=== PATIENT | female | born 1950 | race Caucasian/White ===

== ENCOUNTER 2017-12-01 21:26 | Emergency (ER) | payer MEDICARE | END 2017-12-01 22:59 | disposition left against medical advice (07) | LOC: ERS 21:26 | DX: Z53.21 Procedure and treatment not carried out due to patient leaving prior to being seen by health care provider (principal) ==

== ENCOUNTER 2019-03-08 15:22 | Outpatient (CLI) | payer MEDICARE | END 2019-03-08 15:23 | disposition home or self-care (01) | LOC: CTENTCT 15:22 | PROVIDERS: ATTEND Student in an Organized Health Care Education/Training Program | DX: S02.30XA Fracture of orbital floor, unspecified side, initial encounter for closed fracture (principal) | CPT/HCPCS: 70486 ==

== ENCOUNTER 2020-11-19 14:38 | Outpatient (CLI) | payer MEDICARE | END 2020-11-19 14:39 | disposition home or self-care (01) | LOC: BICRAD 14:38 | PROVIDERS: ATTEND Family Medicine | DX: S99.912A Unspecified injury of left ankle, initial encounter (principal); W19.XXXA Unspecified fall, initial encounter ==

== ENCOUNTER 2020-12-02 13:38 | Outpatient (CLI) | payer MEDICARE ==
[2020-12-02] MEDS ORDERED: Iopamidol 370 76% 100 ML VIAL ONE (16:24)
== END 2020-12-02 13:39 | disposition home or self-care (01) ==
LOC: BICCT 13:38
PROVIDERS: ATTEND Family Medicine
DX: N28.89 Other specified disorders of kidney and ureter (principal); R31.29 Other microscopic hematuria; N28.1 Cyst of kidney, acquired; K44.9 Diaphragmatic hernia without obstruction or gangrene; E27.8 Other specified disorders of adrenal gland
CPT/HCPCS: 74170; Q9967

== ENCOUNTER 2021-03-11 11:34 | Emergency (ER) | payer MEDICARE ==
[2021-03-11] MEDS ORDERED: Diazepam 10 MG/2 ML SYRINGE ONE (12:56)
[2021-03-11] MEDS ORDERED: Morphine 4 MG/ML VIAL ONE (14:46)
[2021-03-11] MEDS ORDERED: Ondansetron ODT 4 MG TAB ONE ×2 (14:46→14:48)
== END 2021-03-11 16:35 | disposition home or self-care (01) ==
LOC: ERS 11:34
DX: S32.011A Stable burst fracture of first lumbar vertebra, initial encounter for closed fracture (principal); I10 Essential (primary) hypertension; J44.9 Chronic obstructive pulmonary disease, unspecified; F17.210 Nicotine dependence, cigarettes, uncomplicated; V89.2XXA Person injured in unspecified motor-vehicle accident, traffic, initial encounter
CPT/HCPCS: 72128; 72131; 96372; J2270; J3360; Q0162

== ENCOUNTER 2021-03-15 20:10 | Inpatient (IN) | payer OTHER, MEDICARE ==
[2021-03-15 21:06] LABS: #Eosinphils 0.1 thou/uL (0.0-0.7); #Lymphocytes 1.1 thou/uL (1.20-3.40); #Monocytes 0.8 thou/uL (0.11-0.59); #Neutrophils 12.6 thou/uL (1.40-6.50); %Basophils 0.1 % (0.0-1.0); %Eosinophils 0.4 % (0.0-10.0); %Lymphocytes 7.4 % (21.0-51.0); %Monocytes 5.5 % (0.0-10.0); %Neutrophils 86.6 % (42.0-75.0); Hemoglobin 14.3 g/dL (12.0-16.0); Mean Corpuscular HGB CONC 33.8 g/dL (32.0-36.0); Mean Corpuscular Hemoglobin 32.4 pg (27.0-31.0); Mean Corpuscular Volume 95.8 fL (78.0-98.0); Platelet Count 251 thou/uL (130-400); RBC Distribution Width 12.9 % (11.5-14.5); Red Blood Cell (RBC) Count 4.42 mill/uL (4.20-5.40); White Blood Cell (WBC) Count 14.6 thou/uL (4.8-10.8)
[2021-03-15 21:15] LABS: Bilirubin Negative (Negative); Blood, Urine Negative (Negative); Clarity Clear (Clear); Glucose, Urine (Dipstick) Normal (Negative); Ketone, Urine Negative (Negative); Leukocyte Negative Leu/uL (Negative); Nitrite Negative (Negative); Protein, Urine (Dipstick) 10 mg/dL (Neg-Trace); Specific Gravity, Urine 1.023 (1.002-1.036); pH, Urine 5.5 (5.0-9.0)
[2021-03-15 21:29] LABS: ALT (SGPT) 13 U/L (8-55); AST (SGOT) 31 U/L (5-34); Albumin 2.9 g/dL (3.4-4.8); Alkaline Phosphatase 74 U/L (40-110); Anion Gap 13 mmol/L (10-20); BUN (Urea Nitrogen) 76 mg/dL (9.8-20.1); Bilirubin, Total 0.4 mg/dL (0.2-1.2); CK (CPK) 1382 U/L (29-168); Calc. Creatinine Clearance 0 mL/min (70-130); Calcium 8.1 mg/dL (7.8-10.44); Carbon Dioxide 19 mmol/L (23-31); Chloride 101 mmol/L (98-107); Glucose 107 mg/dL (80-115); Potassium 3.4 mmol/L (3.5-5.1); Protein, Total 5.9 g/dL (5.8-8.1); Sodium 130 mmol/L (136-145)
[2021-03-15 22:07] LABS: CKMB 17.2 ng/mL (0-6.6)
[2021-03-15] MEDS ORDERED: Fentanyl 100 MCG/2 ML VIAL ONE (22:38)
[2021-03-15] MEDS ORDERED: Dexamethasone 20 MG/5 ML VIAL ONE (23:11)
[2021-03-15] MEDS ORDERED: Rocuronium Bromide 10 MG/ML (10ML VIAL) ONE (23:11)
[2021-03-15] MEDS ORDERED: Ondansetron PF 4 MG/2 ML Vial ONE (23:11)
[2021-03-15] MEDS ORDERED: Lidocaine 1% PF 5 ML VIAL ONE (23:11)
[2021-03-15] MEDS ORDERED: Succinylcholine 200 MG/10 ml SYRINGE FS ONE (23:11)
[2021-03-15 23:43] LABS: SARS-CoV-2 NAA Rapid Test Not Detected (NotDetected)
[2021-03-15] MEDS ORDERED: Phenylephrine 10 MG/ML VIAL ONE (23:46)
[2021-03-15] MEDS ORDERED: Norepinephrine 4 MG/4 ML VIAL ONE (23:46)
[2021-03-15] MEDS ORDERED: Albumin 5% 500 ML ONE (23:55)
[2021-03-15] MEDS ORDERED: Sodium Chloride 0.9% 30 ML ONE (23:59)
[2021-03-16] MEDS ORDERED: Phenylephrine 10 MG/ML VIAL ONE (00:50)
[2021-03-16] MEDS ORDERED: Fentanyl CADD 100 ML IV SCH (01:45)
[2021-03-16] MEDS ORDERED: Propofol BOLUS 1,000 MG/100 ML VIAL IV PRN (01:45)
[2021-03-16] MEDS ORDERED: Propofol 1,000 MG/100 ML VIAL IV PRN (01:45)
[2021-03-16] MEDS ORDERED: DISCONTINUE PREVIOUS NARCOTIC PAIN MEDICATIONS AND BENZODIAZEPINES FS SCH (01:45)
[2021-03-16] MEDS ORDERED: Lorazepam 2 MG/ML VIAL SLOW IVP PRN (01:45)
[2021-03-16] MEDS ORDERED: Morphine 2 MG/ML VIAL SLOW IVP PRN (01:45)
[2021-03-16] MEDS ORDERED: Fentanyl BOLUS 250 ML IVPB PRN (01:45)
[2021-03-16 01:47] LABS: Actual Bicarbonate (HCO3a) 18.6 mEq/L (22-28); Base Excess (BEa) -8.3 mEq/L (-2.0 to +3.0); CO2 Tension 43.2 mmHg (35.0-45.0); Calcium, Ionized (arterial) 1.08 mmol/L (1.12-1.30); Carboxyhemoglobin (COHb) 1.2 gm% (0.0-3.0); Hemoglobin (Hb) 13.3 g/dL (12.0-16.0); Potassium - ABG Lab 3.11 mmol/L (3.70-5.30)
[2021-03-16 01:51] LABS: Puncture Site Arterial Line; pH, Arterial 7.25 (7.35-7.45)
[2021-03-16] MEDS ORDERED: Morphine 4 MG/ML VIAL SLOW IVP PRN (02:00)
[2021-03-16] MEDS ORDERED: Sodium Bicarb 50 MEQ/50 ML Abboject 8.4% SYRINGE IVP SCH (02:15)
[2021-03-16] MEDS: Sodium Chloride 0.9% 1,000 ML IV SCH ×4 (02:48→19:55)
[2021-03-16] MEDS ORDERED: HumaLOG 300 UNITS/3 ML VIAL SC PRN (03:10)
[2021-03-16] MEDS ORDERED: Ondansetron PF 4 MG/2 ML Vial IVP PRN (03:10)
[2021-03-16] MEDS ORDERED: Dextrose 5% in Water 1,000 ML IV PRN (03:10)
[2021-03-16] MEDS ORDERED: D5 1/2 NS w/20 mEq KCL 1,000 ML IV SCH (03:10)
[2021-03-16] MEDS ORDERED: Dextrose 50% Abboject 50 ML SYRINGE SLOW IVP PRN (03:10)
[2021-03-16 03:58] LABS: #Lymphocytes 0.4 thou/uL (1.20-3.40); #Monocytes 0.2 thou/uL (0.11-0.59); #Neutrophils 9.1 thou/uL (1.40-6.50); %Basophils 0.1 % (0.0-1.0); %Eosinophils 0.2 % (0.0-10.0); %Lymphocytes 3.8 % (21.0-51.0); %Monocytes 2.4 % (0.0-10.0); %Neutrophils 93.5 % (42.0-75.0); Hemoglobin 13.1 g/dL (12.0-16.0); Mean Corpuscular HGB CONC 33.7 g/dL (32.0-36.0); Mean Corpuscular Hemoglobin 32.6 pg (27.0-31.0); Mean Corpuscular Volume 96.6 fL (78.0-98.0); Mean Platelet Volume 6.9 fL (7.4-10.4); Platelet Count 224 thou/uL (130-400); Red Blood Cell (RBC) Count 4.01 mill/uL (4.20-5.40); White Blood Cell (WBC) Count 9.7 thou/uL (4.8-10.8)
[2021-03-16] MEDS ORDERED: Calcium Chloride 1 GM/10 ML Abboject SYRINGE IVP SCH (04:00)
[2021-03-16] MEDS ORDERED: MEROPENEM 1 GM/50 ML 1 GM in Premix Bag 1 BAG IVPB SCH ×2 (04:00→23:59)
[2021-03-16] MEDS ORDERED: Fentanyl CADD 100 ML ONE (04:11)
[2021-03-16] MEDS: Fentanyl 100 MCG/2 ML VIAL ONE ×2 (04:17→04:33)
[2021-03-16 04:18] LABS: Anion Gap 14 mmol/L (10-20); BUN (Urea Nitrogen) 58 mg/dL (9.8-20.1); Calc. Creatinine Clearance 58 mL/min (70-130); Calcium 7.9 mg/dL (7.8-10.44); Carbon Dioxide 23 mmol/L (23-31); Chloride 103 mmol/L (98-107); Glucose 130 mg/dL (80-115); Potassium 3.2 mmol/L (3.5-5.1); Sodium 137 mmol/L (136-145)
[2021-03-16] MEDS ORDERED: Fentanyl 100 MCG/2 ML VIAL SLOW IVP SCH (05:00)
[2021-03-16] MEDS: Fluconazole In NaCl,Iso-Osm 200 MG in Premix Bag 1 BAG IVPB SCH (05:28)
[2021-03-16] MEDS ORDERED: Meropenem 1 GM in Sodium Chloride 0.9% 100 ML IVPB SCH (06:00)
[2021-03-16 08:06] LABS: Base Excess (BEa) -1.7 mEq/L (-2.0 to +3.0); CO2 Tension 44.2 mmHg (35.0-45.0); Carboxyhemoglobin (COHb) 1.4 gm% (0.0-3.0); Hemoglobin (Hb) 16.3 g/dL (12.0-16.0); O2 Tension (PaO2), arterial 71.4 mmHg (> 80.0); Potassium - ABG Lab 3.32 mmol/L (3.70-5.30); pH, Arterial 7.35 (7.35-7.45)
[2021-03-16 08:23] LABS: Puncture Site Arterial Line
[2021-03-16] MEDS ORDERED: Electrolyte Replacement Protocol 1 EACH FS SCH (08:45)
[2021-03-16] MEDS ORDERED: Potassium Chloride 40 MEQ in Sodium Chloride 0.9% 250 ML 250 ML IVPB SCH (08:45)
[2021-03-16] MEDS: Pantoprazole 40 MG VIAL IVP SCH (08:56)
[2021-03-16] MEDS: Enoxaparin Sodium 40 MG/0.4 ML SYRINGE SC SCH (08:56)
[2021-03-16] MEDS ORDERED: Enoxaparin Sodium 30 MG/0.3 ML SYRINGE SC SCH (09:00)
[2021-03-16] MEDS ORDERED: Meropenem 500 MG in Sodium Chloride 0.9% 100 ML IVPB SCH (12:00)
[2021-03-16 15:50] LABS: Potassium 3.8 mmol/L (3.5-5.1)
[2021-03-16] MEDS ORDERED: Haloperidol Lactate 5 MG/ML VIAL ONE ×2 (16:28→19:51)
[2021-03-16] MEDS ORDERED: Haloperidol Lactate 5 MG/ML VIAL SLOW IVP SCH ×3 (17:00→21:00)
[2021-03-16] MEDS ORDERED: Haloperidol Lactate 5 MG/ML VIAL SLOW IVP PRN (17:06)
[2021-03-16] MEDS: Nicotine 14 MG PATCH TD SCH (17:18)
[2021-03-16 17:57] LABS: #Lymphocytes 0.6 thou/uL (1.20-3.40); #Monocytes 0.7 thou/uL (0.11-0.59); #Neutrophils 7.1 thou/uL (1.40-6.50); %Basophils 0.3 % (0.0-1.0); %Eosinophils 0.2 % (0.0-10.0); %Lymphocytes 6.6 % (21.0-51.0); %Monocytes 7.9 % (0.0-10.0); Hemoglobin 11.5 g/dL (12.0-16.0); Mean Corpuscular HGB CONC 33.1 g/dL (32.0-36.0); Mean Corpuscular Volume 96.7 fL (78.0-98.0); Mean Platelet Volume 6.9 fL (7.4-10.4); Platelet Count 228 thou/uL (130-400); White Blood Cell (WBC) Count 8.4 thou/uL (4.8-10.8)
[2021-03-17] MEDS: Haloperidol Lactate 5 MG/ML VIAL SLOW IVP SCH ×3 (00:52→08:58)
[2021-03-17 05:06] LABS: ALT (SGPT) 20 U/L (8-55); AST (SGOT) 33 U/L (5-34); Albumin 2.9 g/dL (3.4-4.8); Alkaline Phosphatase 82 U/L (40-110); Anion Gap 10 mmol/L (10-20); BUN (Urea Nitrogen) 31 mg/dL (9.8-20.1); Bilirubin, Total 0.4 mg/dL (0.2-1.2); CK (CPK) 1058 U/L (29-168); Calc. Creatinine Clearance 90 mL/min (70-130); Calcium 8.6 mg/dL (7.8-10.44); Carbon Dioxide 27 mmol/L (23-31); Chloride 108 mmol/L (98-107); Globulin 2.7 g/dL (2.4-3.5); Glucose 136 mg/dL (80-115); Magnesium 1.9 mg/dL (1.6-2.6); Potassium 3.8 mmol/L (3.5-5.1); Protein, Total 5.6 g/dL (5.8-8.1); Sodium 141 mmol/L (136-145)
[2021-03-17 05:11] LABS: Phosphorus 1.7 mg/dL (2.3-4.7)
[2021-03-17] MEDS ORDERED: Magnesium 2 GM/50 ML 2 GM in Premix Bag 1 BAG IVPB SCH (05:30)
[2021-03-17] MEDS: Sodium Chloride 0.9% 1,000 ML IV SCH ×3 (05:44→21:43)
[2021-03-17] MEDS: Fluconazole In NaCl,Iso-Osm 200 MG in Premix Bag 1 BAG IVPB SCH (05:46)
[2021-03-17] MEDS ORDERED: Potassium Phosphate 15 MMOL in Sodium Chloride 0.9% 100 ML IVPB SCH (06:00)
[2021-03-17] MEDS: MEROPENEM 1 GM/50 ML 1 GM in Premix Bag 1 BAG IVPB SCH ×2 (07:23→17:09)
[2021-03-17] MEDS: Enoxaparin Sodium 40 MG/0.4 ML SYRINGE SC SCH (08:58)
[2021-03-17] MEDS: Pantoprazole 40 MG VIAL IVP SCH (09:09)
[2021-03-17] MEDS: Haloperidol Lactate 5 MG/ML VIAL SLOW IVP PRN (13:56)
[2021-03-17] MEDS: Meropenem 1 GM in Sodium Chloride 0.9% 100 ML IVPB SCH ×2 (17:07→23:51)
[2021-03-17] MEDS: Morphine 4 MG/ML VIAL SLOW IVP PRN ×2 (17:48→21:36)
[2021-03-17] MEDS: Nicotine 14 MG PATCH TD SCH (17:50)
[2021-03-17] MEDS: Amitriptyline HCl 100 MG TAB PO SCH (21:13)
[2021-03-17] MEDS: Ergocalciferol 1.25 MG(50,000 UNITS) CAP PO SCH (21:13)
[2021-03-18] MEDS: Haloperidol Lactate 5 MG/ML VIAL SLOW IVP PRN ×2 (00:16→05:33)
[2021-03-18] MEDS: Morphine 4 MG/ML VIAL SLOW IVP PRN ×5 (00:16→20:56)
[2021-03-18] MEDS: Fluconazole In NaCl,Iso-Osm 200 MG in Premix Bag 1 BAG IVPB SCH (04:33)
[2021-03-18 04:53] LABS: Anion Gap 11 mmol/L (10-20); BUN (Urea Nitrogen) 22 mg/dL (9.8-20.1); Calc. Creatinine Clearance 93 mL/min (70-130); Calcium 8.9 mg/dL (7.8-10.44); Carbon Dioxide 27 mmol/L (23-31); Chloride 108 mmol/L (98-107); Glucose 111 mg/dL (80-115); Potassium 3.8 mmol/L (3.5-5.1); Sodium 142 mmol/L (136-145)
[2021-03-18 04:58] LABS: Band 6 % (5-11); Hemoglobin 12.1 g/dL (12.0-16.0); Lymphocytes 12 % (21-51); MDiff Complete? YES; Mean Corpuscular HGB CONC 33.2 g/dL (32.0-36.0); Mean Corpuscular Hemoglobin 32.6 pg (27.0-31.0); Mean Corpuscular Volume 98.2 fL (78.0-98.0); Monocytes 10 % (0-10); Neutrophil 70 % (42-75); Platelet Count 256 thou/uL (130-400); Platelet Morphology Comment Appears Adequate; RBC Distribution Width 13.1 % (11.5-14.5); RBC Morphology Normal; Reactive Lymphocytes 2 % (0-10); Red Blood Cell (RBC) Count 3.69 mill/uL (4.20-5.40); White Blood Cell (WBC) Count 12.4 thou/uL (4.8-10.8)
[2021-03-18] MEDS: Meropenem 1 GM in Sodium Chloride 0.9% 100 ML IVPB SCH ×3 (07:35→23:01)
[2021-03-18] MEDS: Sodium Chloride 0.9% 1,000 ML IV SCH ×2 (07:36→20:58)
[2021-03-18] MEDS: Enoxaparin Sodium 40 MG/0.4 ML SYRINGE SC SCH (09:28)
[2021-03-18] MEDS: Pantoprazole 40 MG VIAL IVP SCH (10:03)
[2021-03-18] MEDS ORDERED: lamoTRIgine 25 MG TAB PO SCH (12:30)
[2021-03-18] MEDS: lamoTRIgine 25 MG TAB PO SCH (14:17)
[2021-03-18] MEDS: Nicotine 14 MG PATCH TD SCH (17:07)
[2021-03-18] MEDS: hydrALAZINE 20 MG/ML VIAL SLOW IVP PRN (18:26)
[2021-03-18] MEDS: Amitriptyline HCl 100 MG TAB PO SCH (20:56)
[2021-03-18] MEDS: Ergocalciferol 1.25 MG(50,000 UNITS) CAP PO SCH (21:57)
[2021-03-19] MEDS: Fluconazole In NaCl,Iso-Osm 200 MG in Premix Bag 1 BAG IVPB SCH (05:10)
[2021-03-19 05:17] LABS: Hemoglobin 12.5 g/dL (12.0-16.0); Mean Corpuscular HGB CONC 31.2 g/dL (32.0-36.0); Mean Corpuscular Hemoglobin 30.5 pg (27.0-31.0); Mean Corpuscular Volume 97.7 fL (78.0-98.0); Mean Platelet Volume 6.7 fL (7.4-10.4); Platelet Count 276 thou/uL (130-400); RBC Distribution Width 13.4 % (11.5-14.5); Red Blood Cell (RBC) Count 4.11 mill/uL (4.20-5.40); White Blood Cell (WBC) Count 13.5 thou/uL (4.8-10.8)
[2021-03-19 05:34] LABS: Anion Gap 12 mmol/L (10-20); BUN (Urea Nitrogen) 17 mg/dL (9.8-20.1); Calc. Creatinine Clearance 106 mL/min (70-130); Calcium 8.9 mg/dL (7.8-10.44); Carbon Dioxide 24 mmol/L (23-31); Chloride 108 mmol/L (98-107); Glucose 102 mg/dL (80-115); Magnesium 1.8 mg/dL (1.6-2.6); Potassium 3.8 mmol/L (3.5-5.1); Sodium 140 mmol/L (136-145)
[2021-03-19 05:43] LABS: Band 4 % (5-11); Eosinophils 2 % (0-10); Hypochromia SLIGHT = 6-15 cells (100X) (0-5/hpf); Lymphocytes 9 % (21-51); MDiff Complete? YES; Metamyelocyte 1 % (0-0); Monocytes 6 % (0-10); Neutrophil 77 % (42-75); Nucleated RBC 1 % (0); Platelet Morphology Comment Appears Adequate; Reactive Lymphocytes 1 % (0-10)
[2021-03-19] MEDS ORDERED: Magnesium 2 GM/50 ML 2 GM in Premix Bag 1 BAG IVPB SCH (06:00)
[2021-03-19] MEDS: Multivitamins, Adult 10 ML, Folic Acid 1 MG, Thiamine HCl 100 MG in Dextrose 5 %-0.45 %... IV SCH (06:10)
[2021-03-19] MEDS ORDERED: Morphine 4 MG/ML VIAL SLOW IVP PRN ×2 (08:43→17:07)
[2021-03-19] MEDS: Sodium Chloride 0.9% 1,000 ML IV SCH ×2 (09:38→15:33)
[2021-03-19] MEDS: lamoTRIgine 25 MG TAB PO SCH (09:40)
[2021-03-19] MEDS: Enoxaparin Sodium 40 MG/0.4 ML SYRINGE SC SCH (09:50)
[2021-03-19] MEDS: Meropenem 1 GM in Sodium Chloride 0.9% 100 ML IVPB SCH ×2 (09:54→15:50)
[2021-03-19 10:15] LABS: Hemoglobin 11.9 g/dL (12.0-16.0); Mean Corpuscular HGB CONC 33.3 g/dL (32.0-36.0); Mean Corpuscular Hemoglobin 32.5 pg (27.0-31.0); Mean Corpuscular Volume 97.5 fL (78.0-98.0); Mean Platelet Volume 6.8 fL (7.4-10.4); Platelet Count 268 thou/uL (130-400); RBC Distribution Width 13.1 % (11.5-14.5); Red Blood Cell (RBC) Count 3.67 mill/uL (4.20-5.40); White Blood Cell (WBC) Count 13.6 thou/uL (4.8-10.8)
[2021-03-19 10:19] LABS: Lactic Acid 0.8 mmol/L (0.5-2.2)
[2021-03-19 10:25] LABS: ALT (SGPT) 21 U/L (8-55); AST (SGOT) 18 U/L (5-34); Albumin 2.8 g/dL (3.4-4.8); Alkaline Phosphatase 59 U/L (40-110); Anion Gap 7 mmol/L (10-20); BUN (Urea Nitrogen) 16 mg/dL (9.8-20.1); Bilirubin, Total 0.3 mg/dL (0.2-1.2); Calc. Creatinine Clearance 111 mL/min (70-130); Calcium 8.7 mg/dL (7.8-10.44); Carbon Dioxide 29 mmol/L (23-31); Chloride 107 mmol/L (98-107); Globulin 2.8 g/dL (2.4-3.5); Glucose 124 mg/dL (80-115); Magnesium 2.1 mg/dL (1.6-2.6); Potassium 3.7 mmol/L (3.5-5.1); Protein, Total 5.6 g/dL (5.8-8.1); Sodium 139 mmol/L (136-145)
[2021-03-19 10:32] LABS: Band 7 % (5-11); Eosinophils 4 % (0-10); Lymphocytes 7 % (21-51); MDiff Complete? YES; Monocytes 7 % (0-10); Neutrophil 74 % (42-75); Platelet Morphology Comment Appears Adequate; Polychromasia SLIGHT = 2-3 cells (100X) (0-2/hpf)
[2021-03-19] MEDS ORDERED: Morphine 4 MG/ML VIAL SLOW IVP SCH (10:45)
[2021-03-19 11:16] LABS: CKMB 1.6 ng/mL (0-6.6)
[2021-03-19] MEDS ORDERED: Lorazepam 1 MG TAB PO PRN (17:14)
[2021-03-19 17:32] LABS: CKMB 1.3 ng/mL (0-6.6)
[2021-03-19] MEDS: Nicotine 14 MG PATCH TD SCH (18:11)
[2021-03-19] MEDS: hydrALAZINE 20 MG/ML VIAL SLOW IVP PRN (18:18)
[2021-03-19] MEDS: Amitriptyline HCl 100 MG TAB PO SCH (20:55)
[2021-03-19] MEDS: Ergocalciferol 1.25 MG(50,000 UNITS) CAP PO SCH (20:55)
[2021-03-20] MEDS: Meropenem 1 GM in Sodium Chloride 0.9% 100 ML IVPB SCH ×4 (01:11→23:00)
[2021-03-20] MEDS: Sodium Chloride 0.9% 1,000 ML IV SCH ×3 (02:03→14:08)
[2021-03-20] MEDS: hydrALAZINE 20 MG/ML VIAL SLOW IVP PRN ×3 (03:50→21:18)
[2021-03-20 04:23] LABS: ALT (SGPT) 23 U/L (8-55); AST (SGOT) 19 U/L (5-34); Albumin 2.7 g/dL (3.4-4.8); Alkaline Phosphatase 62 U/L (40-110); Anion Gap 10 mmol/L (10-20); BUN (Urea Nitrogen) 13 mg/dL (9.8-20.1); Bilirubin, Total 0.4 mg/dL (0.2-1.2); Calc. Creatinine Clearance 118 mL/min (70-130); Calcium 8.5 mg/dL (7.8-10.44); Carbon Dioxide 28 mmol/L (23-31); Chloride 107 mmol/L (98-107); Globulin 2.8 g/dL (2.4-3.5); Glucose 112 mg/dL (80-115); Potassium 3.6 mmol/L (3.5-5.1); Protein, Total 5.5 g/dL (5.8-8.1); Sodium 141 mmol/L (136-145)
[2021-03-20] MEDS: Fluconazole In NaCl,Iso-Osm 200 MG in Premix Bag 1 BAG IVPB SCH (04:52)
[2021-03-20 04:54] LABS: Band 11 % (5-11); Eosinophils 3 % (0-10); Hemoglobin 12.9 g/dL (12.0-16.0); Lymphocytes 13 % (21-51); MDiff Complete? YES; Mean Platelet Volume 6.6 fL (7.4-10.4); Monocytes 4 % (0-10); Neutrophil 66 % (42-75); Platelet Count 284 thou/uL (130-400); RBC Distribution Width 13.1 % (11.5-14.5); White Blood Cell (WBC) Count 14.5 thou/uL (4.8-10.8)
[2021-03-20] MEDS: Multivitamins, Adult 10 ML, Folic Acid 1 MG, Thiamine HCl 100 MG in Dextrose 5 %-0.45 %... IV SCH (06:40)
[2021-03-20] MEDS: Carvedilol 6.25 MG TAB PO SCH ×2 (08:35→16:53)
[2021-03-20] MEDS: Enoxaparin Sodium 40 MG/0.4 ML SYRINGE SC SCH (08:36)
[2021-03-20] MEDS: lamoTRIgine 25 MG TAB PO SCH (08:40)
[2021-03-20] MEDS ORDERED: Lisinopril 10 MG TAB PO SCH (13:15)
[2021-03-20] MEDS: GUAIFENESIN SF SOLN 200 MG/10 ML UDCUP PO PRN ×2 (14:38→18:56)
[2021-03-20] MEDS: Cepastat Lozenges 1 LOZ PO PRN ×2 (16:54→22:24)
[2021-03-20] MEDS: Nicotine 14 MG PATCH TD SCH (17:25)
[2021-03-20] MEDS: Lisinopril 10 MG TAB PO SCH (21:19)
[2021-03-20] MEDS: Amitriptyline HCl 100 MG TAB PO SCH (21:19)
[2021-03-20] MEDS: Ergocalciferol 1.25 MG(50,000 UNITS) CAP PO SCH (21:20)
[2021-03-20] MEDS: Morphine 4 MG/ML VIAL SLOW IVP PRN (22:53)
[2021-03-21] MEDS ORDERED: cloNIDine 0.1 MG TAB PO SCH (00:06)
[2021-03-21] MEDS: Fluconazole In NaCl,Iso-Osm 200 MG in Premix Bag 1 BAG IVPB SCH (04:49)
[2021-03-21 04:56] LABS: Hemoglobin 13.5 g/dL (12.0-16.0); Mean Corpuscular HGB CONC 33.6 g/dL (32.0-36.0); Mean Corpuscular Hemoglobin 32.4 pg (27.0-31.0); Mean Corpuscular Volume 96.6 fL (78.0-98.0); Platelet Count 303 thou/uL (130-400); RBC Distribution Width 13.3 % (11.5-14.5); Red Blood Cell (RBC) Count 4.17 mill/uL (4.20-5.40); White Blood Cell (WBC) Count 15.3 thou/uL (4.8-10.8)
[2021-03-21] MEDS: hydrALAZINE 20 MG/ML VIAL SLOW IVP PRN (04:57)
[2021-03-21 05:17] LABS: ALT (SGPT) 22 U/L (8-55); AST (SGOT) 16 U/L (5-34); Albumin 2.6 g/dL (3.4-4.8); Alkaline Phosphatase 67 U/L (40-110); Anion Gap 10 mmol/L (10-20); BUN (Urea Nitrogen) 10 mg/dL (9.8-20.1); Bilirubin, Total 0.5 mg/dL (0.2-1.2); Calc. Creatinine Clearance 122 mL/min (70-130); Calcium 8.6 mg/dL (7.8-10.44); Carbon Dioxide 25 mmol/L (23-31); Chloride 107 mmol/L (98-107); Globulin 2.7 g/dL (2.4-3.5); Glucose 110 mg/dL (80-115); Magnesium 1.6 mg/dL (1.6-2.6); Potassium 3.8 mmol/L (3.5-5.1); Protein, Total 5.3 g/dL (5.8-8.1); Sodium 138 mmol/L (136-145)
[2021-03-21 05:20] LABS: Phosphorus 2.1 mg/dL (2.3-4.7)
[2021-03-21] MEDS ORDERED: Magnesium 2 GM/50 ML 2 GM in Premix Bag 1 BAG IVPB SCH (06:30)
[2021-03-21 06:31] LABS: Band 8 % (5-11); Eosinophils 1 % (0-10); Lymphocytes 15 % (21-51); MDiff Complete? YES; Metamyelocyte 1 % (0-0); Monocytes 7 % (0-10); Neutrophil 66 % (42-75); Reactive Lymphocytes 2 % (0-10)
[2021-03-21] MEDS ORDERED: Potassium Phosphate 15 MMOL in Sodium Chloride 0.9% 250 ML 250 ML IVPB SCH (09:00)
[2021-03-21] MEDS: lamoTRIgine 25 MG TAB PO SCH (10:07)
[2021-03-21] MEDS: Carvedilol 6.25 MG TAB PO SCH ×2 (10:08→17:29)
[2021-03-21] MEDS: Thiamine 100 MG TAB PO SCH (10:08)
[2021-03-21] MEDS: Multivit, Therapeutic 1 TAB PO SCH (10:10)
[2021-03-21] MEDS: Folic Acid 1 MG TAB PO SCH (10:10)
[2021-03-21] MEDS: Lisinopril 10 MG TAB PO SCH ×2 (10:10→20:15)
[2021-03-21] MEDS: Enoxaparin Sodium 40 MG/0.4 ML SYRINGE SC SCH (10:10)
[2021-03-21] MEDS: Meropenem 1 GM in Sodium Chloride 0.9% 100 ML IVPB SCH ×3 (10:11→23:54)
[2021-03-21] MEDS ORDERED: NIFEdipine XL 30 MG TAB PO SCH (11:30)
[2021-03-21] MEDS: Sodium Chloride 0.9% 1,000 ML IV SCH ×2 (12:31→12:47)
[2021-03-21] MEDS: Morphine 4 MG/ML VIAL SLOW IVP PRN (13:14)
[2021-03-21] MEDS: Nicotine 14 MG PATCH TD SCH (17:29)
[2021-03-21] MEDS: cloNIDine 0.1 MG TAB PO PRN (17:32)
[2021-03-21] MEDS: Amitriptyline HCl 100 MG TAB PO SCH (20:15)
[2021-03-21] MEDS: Ergocalciferol 1.25 MG(50,000 UNITS) CAP PO SCH (20:16)
[2021-03-22] MEDS: Fluconazole In NaCl,Iso-Osm 200 MG in Premix Bag 1 BAG IVPB SCH (04:03)
[2021-03-22] MEDS: cloNIDine 0.1 MG TAB PO PRN (04:03)
[2021-03-22] MEDS: traMADol HCl 50 MG TAB PO PRN ×3 (04:15→18:18)
[2021-03-22 04:40] LABS: #Eosinphils 0.4 thou/uL (0.0-0.7); #Lymphocytes 1.7 thou/uL (1.20-3.40); #Monocytes 0.8 thou/uL (0.11-0.59); #Neutrophils 9.6 thou/uL (1.40-6.50); %Basophils 0.3 % (0.0-1.0); %Lymphocytes 13.4 % (21.0-51.0); %Monocytes 6.2 % (0.0-10.0); %Neutrophils 77.1 % (42.0-75.0); Hemoglobin 12.4 g/dL (12.0-16.0); Mean Corpuscular HGB CONC 31.7 g/dL (32.0-36.0); Mean Corpuscular Hemoglobin 30.9 pg (27.0-31.0); Mean Corpuscular Volume 97.5 fL (78.0-98.0); Mean Platelet Volume 6.8 fL (7.4-10.4); Platelet Count 323 thou/uL (130-400); RBC Distribution Width 13.4 % (11.5-14.5); Red Blood Cell (RBC) Count 4.01 mill/uL (4.20-5.40); White Blood Cell (WBC) Count 12.5 thou/uL (4.8-10.8)
[2021-03-22 04:55] LABS: ALT (SGPT) 20 U/L (8-55); AST (SGOT) 19 U/L (5-34); Albumin 2.6 g/dL (3.4-4.8); Alkaline Phosphatase 66 U/L (40-110); Anion Gap 9 mmol/L (10-20); BUN (Urea Nitrogen) 11 mg/dL (9.8-20.1); Bilirubin, Total 0.3 mg/dL (0.2-1.2); Calc. Creatinine Clearance 116 mL/min (70-130); Calcium 8.6 mg/dL (7.8-10.44); Carbon Dioxide 27 mmol/L (23-31); Chloride 107 mmol/L (98-107); Globulin 2.7 g/dL (2.4-3.5); Glucose 105 mg/dL (80-115); Magnesium 1.9 mg/dL (1.6-2.6); Potassium 3.8 mmol/L (3.5-5.1); Protein, Total 5.3 g/dL (5.8-8.1); Sodium 139 mmol/L (136-145)
[2021-03-22 05:06] LABS: Phosphorus 2.9 mg/dL (2.3-4.7)
[2021-03-22] MEDS: Carvedilol 6.25 MG TAB PO SCH ×2 (06:29→17:59)
[2021-03-22] MEDS: hydrALAZINE 20 MG/ML VIAL SLOW IVP PRN (06:29)
[2021-03-22] MEDS ORDERED: Magnesium 2 GM/50 ML 2 GM in Premix Bag 1 BAG IVPB SCH (08:00)
[2021-03-22] MEDS: Multivit, Therapeutic 1 TAB PO SCH (09:56)
[2021-03-22] MEDS: Lisinopril 10 MG TAB PO SCH ×2 (09:57→22:16)
[2021-03-22] MEDS: Folic Acid 1 MG TAB PO SCH (09:59)
[2021-03-22] MEDS: lamoTRIgine 25 MG TAB PO SCH (09:59)
[2021-03-22] MEDS: NIFEdipine XL 30 MG TAB PO SCH (09:59)
[2021-03-22] MEDS: Thiamine 100 MG TAB PO SCH (09:59)
[2021-03-22] MEDS: Enoxaparin Sodium 40 MG/0.4 ML SYRINGE SC SCH (09:59)
[2021-03-22] MEDS: Meropenem 1 GM in Sodium Chloride 0.9% 100 ML IVPB SCH ×2 (10:00→17:59)
[2021-03-22] MEDS: Nicotine 14 MG PATCH TD SCH (18:00)
[2021-03-22] MEDS: Sodium Chloride 0.9% 1,000 ML IV SCH (18:04)
[2021-03-22] MEDS: Amitriptyline HCl 100 MG TAB PO SCH (22:16)
[2021-03-22] MEDS: Ergocalciferol 1.25 MG(50,000 UNITS) CAP PO SCH (22:16)
[2021-03-23] MEDS: Meropenem 1 GM in Sodium Chloride 0.9% 100 ML IVPB SCH ×4 (01:47→23:47)
[2021-03-23] MEDS: traMADol HCl 50 MG TAB PO PRN ×4 (01:48→20:58)
[2021-03-23] MEDS: Fluconazole In NaCl,Iso-Osm 200 MG in Premix Bag 1 BAG IVPB SCH (05:02)
[2021-03-23 05:13] LABS: #Eosinphils 0.3 thou/uL (0.0-0.7); #Lymphocytes 1.4 thou/uL (1.20-3.40); #Monocytes 0.7 thou/uL (0.11-0.59); #Neutrophils 9.3 thou/uL (1.40-6.50); %Basophils 0.3 % (0.0-1.0); %Eosinophils 2.9 % (0.0-10.0); %Lymphocytes 12.1 % (21.0-51.0); %Monocytes 6.1 % (0.0-10.0); %Neutrophils 78.6 % (42.0-75.0); Hemoglobin 12.3 g/dL (12.0-16.0); Mean Corpuscular HGB CONC 32.5 g/dL (32.0-36.0); Mean Corpuscular Hemoglobin 31.5 pg (27.0-31.0); Mean Platelet Volume 6.9 fL (7.4-10.4); Platelet Count 322 thou/uL (130-400); RBC Distribution Width 13.3 % (11.5-14.5); White Blood Cell (WBC) Count 11.9 thou/uL (4.8-10.8)
[2021-03-23 05:41] LABS: ALT (SGPT) 27 U/L (8-55); AST (SGOT) 24 U/L (5-34); Albumin 2.7 g/dL (3.4-4.8); Alkaline Phosphatase 79 U/L (40-110); Anion Gap 9 mmol/L (10-20); BUN (Urea Nitrogen) 8 mg/dL (9.8-20.1); Bilirubin, Total 0.4 mg/dL (0.2-1.2); Calc. Creatinine Clearance 129 mL/min (70-130); Calcium 8.5 mg/dL (7.8-10.44); Carbon Dioxide 28 mmol/L (23-31); Chloride 103 mmol/L (98-107); Globulin 2.7 g/dL (2.4-3.5); Glucose 108 mg/dL (80-115); Potassium 3.9 mmol/L (3.5-5.1); Protein, Total 5.4 g/dL (5.8-8.1); Sodium 136 mmol/L (136-145)
[2021-03-23] MEDS: Multivit, Therapeutic 1 TAB PO SCH (10:49)
[2021-03-23] MEDS: NIFEdipine XL 30 MG TAB PO SCH (10:49)
[2021-03-23] MEDS: Thiamine 100 MG TAB PO SCH (10:49)
[2021-03-23] MEDS: cloNIDine 0.1 MG TAB PO PRN (10:51)
[2021-03-23] MEDS: Carvedilol 6.25 MG TAB PO SCH ×2 (10:51→16:42)
[2021-03-23] MEDS: lamoTRIgine 25 MG TAB PO SCH (10:54)
[2021-03-23] MEDS: Folic Acid 1 MG TAB PO SCH (10:54)
[2021-03-23] MEDS: Lisinopril 10 MG TAB PO SCH ×2 (10:54→20:57)
[2021-03-23] MEDS: Enoxaparin Sodium 40 MG/0.4 ML SYRINGE SC SCH (10:55)
[2021-03-23 13:28] LABS: SARS-CoV-2 PCR by NAA Not Detected (NotDetected)
[2021-03-23] MEDS: Loperamide HCl 2 MG CAP PO SCH ×2 (15:17→20:57)
[2021-03-23] MEDS: Nicotine 14 MG PATCH TD SCH (16:45)
[2021-03-23] MEDS ORDERED: NIFEdipine XL 30 MG TAB PO SCH (19:45)
[2021-03-23] MEDS: Apixaban 5 MG TAB PO SCH (20:57)
[2021-03-23] MEDS: Ergocalciferol 1.25 MG(50,000 UNITS) CAP PO SCH (20:58)
[2021-03-23] MEDS ORDERED: Amitriptyline HCl 25 MG TAB PO SCH (21:00)
[2021-03-24] MEDS: Fluconazole In NaCl,Iso-Osm 200 MG in Premix Bag 1 BAG IVPB SCH (04:43)
[2021-03-24] MEDS: traMADol HCl 50 MG TAB PO PRN ×4 (04:43→21:02)
[2021-03-24 05:36] LABS: #Eosinphils 0.2 thou/uL (0.0-0.7); #Lymphocytes 1.4 thou/uL (1.20-3.40); #Monocytes 0.7 thou/uL (0.11-0.59); %Basophils 0.2 % (0.0-1.0); %Eosinophils 2.5 % (0.0-10.0); %Lymphocytes 15.1 % (21.0-51.0); %Monocytes 7.8 % (0.0-10.0); %Neutrophils 74.4 % (42.0-75.0); Hemoglobin 12.1 g/dL (12.0-16.0); Mean Corpuscular HGB CONC 32.6 g/dL (32.0-36.0); Mean Corpuscular Hemoglobin 31.5 pg (27.0-31.0); Mean Corpuscular Volume 96.7 fL (78.0-98.0); Mean Platelet Volume 7.1 fL (7.4-10.4); Platelet Count 316 thou/uL (130-400); RBC Distribution Width 13.1 % (11.5-14.5); Red Blood Cell (RBC) Count 3.85 mill/uL (4.20-5.40); White Blood Cell (WBC) Count 9.4 thou/uL (4.8-10.8)
[2021-03-24 05:46] LABS: Phosphorus 2.5 mg/dL (2.3-4.7)
[2021-03-24 05:47] LABS: Anion Gap 10 mmol/L (10-20); BUN (Urea Nitrogen) 9 mg/dL (9.8-20.1); Calc. Creatinine Clearance 124 mL/min (70-130); Calcium 8.8 mg/dL (7.8-10.44); Carbon Dioxide 28 mmol/L (23-31); Chloride 102 mmol/L (98-107); Glucose 100 mg/dL (80-115); Magnesium 1.7 mg/dL (1.6-2.6); Potassium 3.8 mmol/L (3.5-5.1); Sodium 136 mmol/L (136-145)
[2021-03-24 08:35] VITALS: BMI 30.8
[2021-03-24] MEDS: Meropenem 1 GM in Sodium Chloride 0.9% 100 ML IVPB SCH ×2 (09:15→15:25)
[2021-03-24] MEDS: Multivit, Therapeutic 1 TAB PO SCH (09:16)
[2021-03-24] MEDS: Carvedilol 6.25 MG TAB PO SCH ×2 (09:16→17:00)
[2021-03-24] MEDS: Lisinopril 10 MG TAB PO SCH ×2 (09:17→21:03)
[2021-03-24] MEDS: Thiamine 100 MG TAB PO SCH (09:17)
[2021-03-24] MEDS: Loperamide HCl 2 MG CAP PO SCH ×3 (09:18→21:02)
[2021-03-24] MEDS: Apixaban 5 MG TAB PO SCH ×2 (09:18→21:04)
[2021-03-24] MEDS: Folic Acid 1 MG TAB PO SCH (09:18)
[2021-03-24] MEDS: lamoTRIgine 25 MG TAB PO SCH (09:19)
[2021-03-24] MEDS: NIFEdipine XL 30 MG TAB PO SCH (09:19)
[2021-03-24] MEDS ORDERED: Magnesium 2 GM/50 ML 2 GM in Premix Bag 1 BAG IVPB SCH (09:45)
[2021-03-24] MEDS ORDERED: Nicotine 14 MG PATCH TD PRN (10:54)
[2021-03-24] MEDS: Ergocalciferol 1.25 MG(50,000 UNITS) CAP PO SCH (21:02)
[2021-03-25] MEDS: Meropenem 1 GM in Sodium Chloride 0.9% 100 ML IVPB SCH ×3 (00:39→16:06)
[2021-03-25] MEDS: traMADol HCl 50 MG TAB PO PRN ×2 (01:19→16:01)
[2021-03-25] MEDS: Fluconazole In NaCl,Iso-Osm 200 MG in Premix Bag 1 BAG IVPB SCH (05:19)
[2021-03-25] MEDS ORDERED: Cyanocobalamin (Vitamin B-12) 1,000 MCG TAB PO SCH (09:00)
[2021-03-25] MEDS ORDERED: Amitriptyline HCl 100 MG TAB PO SCH ×2 (09:00→21:00)
[2021-03-25] MEDS ORDERED: Saccharomyces boulardii 250 MG CAP PO SCH (09:00)
[2021-03-25] MEDS: Folic Acid 1 MG TAB PO SCH (09:10)
[2021-03-25] MEDS: Thiamine 100 MG TAB PO SCH (09:10)
[2021-03-25] MEDS: Carvedilol 6.25 MG TAB PO SCH (09:10)
[2021-03-25] MEDS: NIFEdipine XL 30 MG TAB PO SCH (09:11)
[2021-03-25] MEDS: Apixaban 5 MG TAB PO SCH (09:11)
[2021-03-25] MEDS: Loperamide HCl 2 MG CAP PO SCH ×2 (09:11→16:06)
[2021-03-25] MEDS: Lisinopril 10 MG TAB PO SCH (09:11)
[2021-03-25] MEDS: Multivit, Therapeutic 1 TAB PO SCH (09:11)
[2021-03-25] MEDS: lamoTRIgine 25 MG TAB PO SCH (09:12)
[2021-03-25 16:22] VITALS: BP 160/71; TEMP 97.8
== END 2021-03-25 16:36 | DRG 853 ==
LOC: ERS 20:10 → SDC/OP 23:30 → CCU 23:59 → 2SW 03-18 10:38 → 2NO 03-20 17:52
PROVIDERS: ADMIT Surgery; ATTEND Surgery
PROC: 30233N1 Transfusion of Nonautologous Red Blood Cells into Peripheral Vein, Percutaneous Approach (ICD-10-PCS; 2021-03-15)
PROC: 3E033XZ Introduction of Vasopressor into Peripheral Vein, Percutaneous Approach (ICD-10-PCS; 2021-03-15)
PROC: 0DTF0ZZ Resection of Right Large Intestine, Open Approach (ICD-10-PCS; principal; 2021-03-16)
PROC: 0D1B0Z4 Bypass Ileum to Cutaneous, Open Approach (ICD-10-PCS; 2021-03-16)
PROC: 5A1935Z Respiratory Ventilation, Less than 24 Consecutive Hours (ICD-10-PCS; 2021-03-16)
DX: A41.9 Sepsis, unspecified organism (principal); K63.1 Perforation of intestine (nontraumatic); I21.A1 Myocardial infarction type 2; K55.049 Acute infarction of large intestine, extent unspecified; K65.9 Peritonitis, unspecified; J96.90 Respiratory failure, unspecified, unspecified whether with hypoxia or hypercapnia; R65.21 Severe sepsis with septic shock; S32.011A Stable burst fracture of first lumbar vertebra, initial encounter for closed fracture; N17.9 Acute kidney failure, unspecified; M62.82 Rhabdomyolysis; E87.2 Acidosis; E44.0 Moderate protein-calorie malnutrition; K55.8 Other vascular disorders of intestine; Z68.1 Body mass index [BMI] 19.9 or less, adult; F05 Delirium due to known physiological condition; J44.1 Chronic obstructive pulmonary disease with (acute) exacerbation; Z99.11 Dependence on respirator [ventilator] status; Z20.822 Contact with and (suspected) exposure to COVID-19; E78.5 Hyperlipidemia, unspecified; I10 Essential (primary) hypertension; I48.0 Paroxysmal atrial fibrillation; R13.10 Dysphagia, unspecified; F17.210 Nicotine dependence, cigarettes, uncomplicated; E87.6 Hypokalemia; E83.42 Hypomagnesemia; E83.39 Other disorders of phosphorus metabolism; F41.9 Anxiety disorder, unspecified; E66.9 Obesity, unspecified; F31.9 Bipolar disorder, unspecified; F10.20 Alcohol dependence, uncomplicated; V49.9XXA Car occupant (driver) (passenger) injured in unspecified traffic accident, initial encounter; Y92.410 Unspecified street and highway as the place of occurrence of the external cause; Z68.30 Body mass index [BMI] 30.0-30.9, adult; Z90.49 Acquired absence of other specified parts of digestive tract; Z79.899 Other long term (current) drug therapy; Z78.1 Physical restraint status
CPT/HCPCS: 36415; 36416; 36430; 51701; 71045; 71250; 72100; 74177; 74230; 80048; 80053; 81003; 82274; 82550; 82553; 82607; 82746; 82805; 83605; 83735; 83880; 84100; 84443; 84484; 85025; 86850; 86900; 86901; 87040; 88307; 93005; 93010; 93306; 94002; 96374; C1713; C1751; C9113; J0360; J1100; J1450; J1630; J1650; J1956; J2185; J2270; J2370; J2405; J3010; J3411; J3475; J3480; J3490; J7042; J7050; P9016; P9045; U0002; U0003; U0005

== ENCOUNTER 2021-04-20 10:28 | Inpatient (IN) | payer MEDICARE ==
[2021-04-20] MEDS ORDERED: Norepinephrine 8 MG/0.9% NS 250 ML ONE (10:37)
[2021-04-20] MEDS ORDERED: Vancomycin 1 GM/200 ML BAG ONE (10:41)
[2021-04-20] MEDS ORDERED: Cefepime 2 GM VIAL ONE (10:41)
[2021-04-20 11:25] LABS: INR-International Normal Ratio 1.4; PTT 31.2 sec (22.9-36.1); Prothrombin Time 17.1 sec (12.0-14.7)
[2021-04-20 11:44] LABS: Hemoglobin 15.5 g/dL (12.0-16.0); Mean Corpuscular HGB CONC 32.7 g/dL (32.0-36.0); Mean Corpuscular Volume 94.8 fL (78.0-98.0); Mean Platelet Volume 6.9 fL (7.4-10.4); Platelet Count 295 thou/uL (130-400); RBC Distribution Width 13.1 % (11.5-14.5); Red Blood Cell (RBC) Count 5.01 mill/uL (4.20-5.40); White Blood Cell (WBC) Count 23.9 thou/uL (4.8-10.8)
[2021-04-20 12:04] LABS: Band 2 % (5-11); Lymphocytes 9 % (21-51); MDiff Complete? YES; Monocytes 2 % (0-10); Neutrophil 86 % (42-75); Platelet Morphology Comment Appears Adequate; Polychromasia SLIGHT = 2-3 cells (100X) (0-2/hpf); Reactive Lymphocytes 1 % (0-10)
[2021-04-20 12:05] LABS: ALT (SGPT) 14 U/L (8-55); AST (SGOT) 13 U/L (5-34); Albumin 3.5 g/dL (3.4-4.8); Alkaline Phosphatase 95 U/L (40-110); Anion Gap 20 mmol/L (10-20); BUN (Urea Nitrogen) 77 mg/dL (9.8-20.1); Bilirubin, Total 0.4 mg/dL (0.2-1.2); CK (CPK) 19 U/L (29-168); Calc. Creatinine Clearance 0 mL/min (70-130); Calcium 8.6 mg/dL (7.8-10.44); Carbon Dioxide 10 mmol/L (23-31); Chloride 102 mmol/L (98-107); Globulin 3.2 g/dL (2.4-3.5); Glucose 78 mg/dL (80-115); Lipase 19 U/L (8-78); Potassium 5.9 mmol/L (3.5-5.1); Protein, Total 6.7 g/dL (5.8-8.1); Sodium 126 mmol/L (136-145)
[2021-04-20 12:14] LABS: Bilirubin Moderate (Negative); Blood, Urine Small (Negative); Glucose, Urine (Dipstick) Negative (Negative); Ketone, Urine Trace mg/dL (Negative); Leukocyte Negative (Negative); Nitrite Positive (Negative); Protein, Urine (Dipstick) 30 mg/dL (Neg-Trace); Urobilinogen 0.2 mg/dL (Less than 2)
[2021-04-20 12:15] LABS: Clarity Hazy (Clear)
[2021-04-20 12:16] LABS: Specific Gravity, Urine 1.025 (1.002-1.036)
[2021-04-20 12:37] LABS: Bacteria/HPF 4+ HPF (None Seen); Squamous Epithelial 0-3 HPF (0-3); WBC/HPF 0-3 HPF (0-3)
[2021-04-20] MEDS ORDERED: Insulin Regular 300 UNITS/3 ML VIAL SC PRN ×2 (13:31)
[2021-04-20] MEDS ORDERED: Norepinephrine 8 MG/0.9% NS 250 ML IVPB PRN (13:31)
[2021-04-20] MEDS ORDERED: Calcium Carbonate 500 MG ChewTAB PO PRN (13:34)
[2021-04-20] MEDS ORDERED: Ondansetron PF 4 MG/2 ML Vial IVP PRN (13:34)
[2021-04-20] MEDS ORDERED: Acetaminophen 325 MG TAB PO PRN (13:36)
[2021-04-20] MEDS ORDERED: Vancomycin 1 GM in Premix Bag 1 BAG IVPB SCH (13:45)
[2021-04-20] MEDS ORDERED: Meropenem 1 GM in Sodium Chloride 0.9% 100 ML IVPB SCH (13:45)
[2021-04-20] MEDS ORDERED: metroNIDAZOLE 500 MG in Premix Bag 1 BAG IVPB SCH (14:00)
[2021-04-20] MEDS ORDERED: Vancomycin HCl 500 MG in Sodium Chloride 0.9% 100 ML IVPB SCH (15:15)
[2021-04-20] MEDS ORDERED: Lidocaine 1% w/Epinephrine 1:100K 20 ML VIAL ONE (15:26)
[2021-04-20 16:41] LABS: Troponin I 0.033 ng/mL (< 0.028)
[2021-04-20] MEDS ORDERED: Hydrocortisone Sod Succ/PF 100 mg/2 ml Vial IVP SCH (17:30)
[2021-04-20 18:33] VITALS: BMI 30.4
[2021-04-20 18:42] LABS: Lactic Acid 1.1 mmol/L (0.5-2.2)
[2021-04-20 18:44] LABS: Anion Gap 16 mmol/L (10-20); BUN (Urea Nitrogen) 70 mg/dL (9.8-20.1); Calc. Creatinine Clearance 14 mL/min (70-130); Calcium 8.7 mg/dL (7.8-10.44); Carbon Dioxide 15 mmol/L (23-31); Chloride 103 mmol/L (98-107); Glucose 129 mg/dL (80-115); Potassium 4.4 mmol/L (3.5-5.1); Sodium 130 mmol/L (136-145)
[2021-04-20] MEDS: Meropenem 1 GM in Sodium Chloride 0.9% 100 ML IVPB SCH (18:48)
[2021-04-20] MEDS: Sodium Bicarbonate 150 MEQ in Dextrose 5% in Water 1,000 ML IV SCH (18:48)
[2021-04-20 18:49] LABS: Troponin I 0.046 ng/mL (< 0.028)
[2021-04-20 19:18] LABS: SARS-CoV-2 NAA Rapid Test Not Detected (NotDetected)
[2021-04-20] MEDS ORDERED: Multivit, Adult Inj 10 ML VIAL IV SCH ×2 (19:45)
[2021-04-20] MEDS ORDERED: Multivitamins, Adult 10 ML in Sodium Chloride 0.9% 500 ML IV SCH (19:45)
[2021-04-20] MEDS ORDERED: Thiamine HCl 200 MG/2 ML VIAL SLOW IVP SCH (20:30)
[2021-04-20] MEDS: Heparin 5,000 UNITS/ML VIAL SC SCH (20:36)
[2021-04-20] MEDS: Pantoprazole 40 MG VIAL IVP SCH (20:36)
[2021-04-20] MEDS: Loperamide HCl 2 MG CAP PO SCH (20:36)
[2021-04-20] MEDS: Sodium Bicarbonate 75 MEQ in Dextrose 5% in Water 500 ML IV SCH (20:37)
[2021-04-21] MEDS: Sodium Bicarbonate 75 MEQ in Dextrose 5% in Water 500 ML IV SCH ×3 (00:44→08:17)
[2021-04-21] MEDS: Hydrocortisone Sod Succ/PF 100 mg/2 ml Vial IVP SCH ×4 (00:45→17:52)
[2021-04-21 04:55] LABS: ALT (SGPT) 11 U/L (8-55); AST (SGOT) 11 U/L (5-34); Albumin 3.1 g/dL (3.4-4.8); Alkaline Phosphatase 76 U/L (40-110); Anion Gap 14 mmol/L (10-20); BUN (Urea Nitrogen) 66 mg/dL (9.8-20.1); Bilirubin, Total 0.4 mg/dL (0.2-1.2); Calc. Creatinine Clearance 20 mL/min (70-130); Calcium 8.4 mg/dL (7.8-10.44); Carbon Dioxide 24 mmol/L (23-31); Chloride 98 mmol/L (98-107); Globulin 2.7 g/dL (2.4-3.5); Glucose 185 mg/dL (80-115); Magnesium 2.1 mg/dL (1.6-2.6); Potassium 4.1 mmol/L (3.5-5.1); Protein, Total 5.8 g/dL (5.8-8.1); Sodium 132 mmol/L (136-145)
[2021-04-21 05:14] LABS: #Lymphocytes 0.8 thou/uL (1.20-3.40); #Monocytes 0.3 thou/uL (0.11-0.59); #Neutrophils 10.4 thou/uL (1.40-6.50); %Basophils 0.2 % (0.0-1.0); %Eosinophils 0.3 % (0.0-10.0); %Monocytes 2.6 % (0.0-10.0); %Neutrophils 89.9 % (42.0-75.0); Hemoglobin 12.8 g/dL (12.0-16.0); Mean Corpuscular HGB CONC 34.2 g/dL (32.0-36.0); Mean Corpuscular Hemoglobin 31.8 pg (27.0-31.0); Mean Platelet Volume 7.2 fL (7.4-10.4); Platelet Count 230 thou/uL (130-400); RBC Distribution Width 12.8 % (11.5-14.5); Red Blood Cell (RBC) Count 4.02 mill/uL (4.20-5.40); White Blood Cell (WBC) Count 11.6 thou/uL (4.8-10.8)
[2021-04-21] MEDS: Heparin 5,000 UNITS/ML VIAL SC SCH (08:18)
[2021-04-21] MEDS: Folic Acid 1 MG TAB PO SCH (08:18)
[2021-04-21] MEDS: Acetaminophen 325 MG TAB PO PRN (08:18)
[2021-04-21] MEDS: Thiamine 100 MG TAB PO SCH (08:18)
[2021-04-21] MEDS: Multivit, Therapeutic 1 TAB PO SCH (08:18)
[2021-04-21] MEDS: Loperamide HCl 2 MG CAP PO SCH ×3 (08:18→20:45)
[2021-04-21] MEDS ORDERED: Heparin 5,000 UNITS/ML VIAL SC SCH (09:00)
[2021-04-21] MEDS ORDERED: FLU VACC QS2021-22(65YR UP)/PF 240 MCG/0.7 ML SYRINGE IM ONE (09:00)
[2021-04-21 10:45] LABS: Anion Gap 16 mmol/L (10-20); BUN (Urea Nitrogen) 56 mg/dL (9.8-20.1); Calc. Creatinine Clearance 26 mL/min (70-130); Calcium 8.5 mg/dL (7.8-10.44); Carbon Dioxide 25 mmol/L (23-31); Chloride 94 mmol/L (98-107); Glucose 223 mg/dL (80-115); Potassium 3.7 mmol/L (3.5-5.1); Sodium 131 mmol/L (136-145)
[2021-04-21] MEDS: Sodium Chloride 0.9% 1,000 ML IV SCH ×2 (11:31→17:53)
[2021-04-21] MEDS ORDERED: Meropenem 500 MG in Sodium Chloride 0.9% 100 ML IVPB SCH (14:00)
[2021-04-21] MEDS: Meropenem 1 GM in Sodium Chloride 0.9% 100 ML IVPB SCH (14:25)
[2021-04-21] MEDS: HYDROcodone/Acetaminophen 10/325 mg Tablet PO PRN ×2 (14:37→18:51)
[2021-04-21 16:44] LABS: Vancomycin, Random 9.9 ug/mL (See Comment)
[2021-04-21] MEDS ORDERED: Vancomycin HCl 750 MG in Sodium Chloride 0.9% 250 ML 250 ML IVPB SCH (17:00)
[2021-04-21] MEDS: Sodium Bicarbonate 150 MEQ in Dextrose 5% in Water 1,000 ML IV SCH (17:20)
[2021-04-21] MEDS: Pantoprazole 40 MG VIAL IVP SCH (20:45)
[2021-04-21] MEDS: Apixaban 5 MG TAB PO SCH (20:45)
[2021-04-21] MEDS: Amitriptyline HCl 100 MG TAB PO SCH (20:51)
[2021-04-22] MEDS: Hydrocortisone Sod Succ/PF 100 mg/2 ml Vial IVP SCH ×4 (00:28→17:01)
[2021-04-22] MEDS: HYDROcodone/Acetaminophen 10/325 mg Tablet PO PRN (01:25)
[2021-04-22 06:46] LABS: #Lymphocytes 0.9 thou/uL (1.20-3.40); #Monocytes 0.2 thou/uL (0.11-0.59); #Neutrophils 7.8 thou/uL (1.40-6.50); %Eosinophils 0.2 % (0.0-10.0); %Lymphocytes 9.7 % (21.0-51.0); %Monocytes 2.4 % (0.0-10.0); %Neutrophils 87.7 % (42.0-75.0); Hemoglobin 12.2 g/dL (12.0-16.0); Mean Corpuscular HGB CONC 33.1 g/dL (32.0-36.0); Mean Corpuscular Hemoglobin 31.1 pg (27.0-31.0); Mean Platelet Volume 7.2 fL (7.4-10.4); Platelet Count 205 thou/uL (130-400); RBC Distribution Width 12.7 % (11.5-14.5); Red Blood Cell (RBC) Count 3.91 mill/uL (4.20-5.40); White Blood Cell (WBC) Count 8.8 thou/uL (4.8-10.8)
[2021-04-22 07:09] LABS: ALT (SGPT) 11 U/L (8-55); AST (SGOT) 12 U/L (5-34); Albumin 3.1 g/dL (3.4-4.8); Alkaline Phosphatase 72 U/L (40-110); Anion Gap 9 mmol/L (10-20); BUN (Urea Nitrogen) 39 mg/dL (9.8-20.1); Bilirubin, Total 0.4 mg/dL (0.2-1.2); Calc. Creatinine Clearance 52 mL/min (70-130); Calcium 8.9 mg/dL (7.8-10.44); Carbon Dioxide 30 mmol/L (23-31); Chloride 103 mmol/L (98-107); Globulin 2.4 g/dL (2.4-3.5); Glucose 122 mg/dL (80-115); Potassium 4.7 mmol/L (3.5-5.1); Protein, Total 5.5 g/dL (5.8-8.1); Sodium 137 mmol/L (136-145)
[2021-04-22] MEDS: lamoTRIgine 25 MG TAB PO SCH (08:50)
[2021-04-22] MEDS: Multivit, Therapeutic 1 TAB PO SCH (08:51)
[2021-04-22] MEDS: Loperamide HCl 2 MG CAP PO SCH (08:51)
[2021-04-22] MEDS: Thiamine 100 MG TAB PO SCH (08:51)
[2021-04-22] MEDS: Apixaban 5 MG TAB PO SCH ×2 (08:51→20:39)
[2021-04-22] MEDS: Folic Acid 1 MG TAB PO SCH (08:51)
[2021-04-22] MEDS: Diphenoxylate HCl/Atropine Tablet PO SCH ×2 (15:53→20:39)
[2021-04-22] MEDS: Carvedilol 6.25 MG TAB PO SCH (16:51)
[2021-04-22] MEDS: Pantoprazole 40 MG VIAL IVP SCH (20:39)
[2021-04-22] MEDS: Acetaminophen 325 MG TAB PO PRN (20:41)
[2021-04-22] MEDS: Amitriptyline HCl 100 MG TAB PO SCH (20:45)
[2021-04-22] MEDS ORDERED: Meropenem 1 GM in Sodium Chloride 0.9% 100 ML IVPB SCH (21:00)
[2021-04-23] MEDS: Hydrocortisone Sod Succ/PF 100 mg/2 ml Vial IVP SCH ×2 (00:23→05:05)
[2021-04-23 07:27] LABS: Anion Gap 10 mmol/L (10-20); BUN (Urea Nitrogen) 21 mg/dL (9.8-20.1); Calc. Creatinine Clearance 74 mL/min (70-130); Calcium 9.1 mg/dL (7.8-10.44); Carbon Dioxide 25 mmol/L (23-31); Chloride 106 mmol/L (98-107); Glucose 109 mg/dL (80-115); Potassium 5.3 mmol/L (3.5-5.1); Sodium 136 mmol/L (136-145)
[2021-04-23] MEDS: Diphenoxylate HCl/Atropine Tablet PO SCH ×2 (08:31→14:17)
[2021-04-23] MEDS: Thiamine 100 MG TAB PO SCH (08:31)
[2021-04-23] MEDS: Carvedilol 6.25 MG TAB PO SCH ×2 (08:31→17:20)
[2021-04-23] MEDS: lamoTRIgine 25 MG TAB PO SCH (08:31)
[2021-04-23] MEDS: Multivit, Therapeutic 1 TAB PO SCH (08:32)
[2021-04-23] MEDS: Folic Acid 1 MG TAB PO SCH (08:32)
[2021-04-23] MEDS: Apixaban 5 MG TAB PO SCH (08:32)
[2021-04-23] MEDS ORDERED: Ergocalciferol 1.25 MG(50,000 UNITS) CAP PO SCH (09:00)
[2021-04-23] MEDS ORDERED: Cyanocobalamin (Vitamin B-12) 1,000 MCG TAB PO SCH (09:00)
[2021-04-23] MEDS ORDERED: Calcium Carbonate 600 MG + Vit D TAB PO SCH (09:00)
[2021-04-23] MEDS ORDERED: NIFEdipine XL 30 MG TAB PO SCH (09:00)
[2021-04-23] MEDS ORDERED: Amlodipine 5 MG TAB PO SCH (13:15)
[2021-04-23] MEDS: HYDROcodone/Acetaminophen 10/325 mg Tablet PO PRN (14:17)
[2021-04-23 17:34] VITALS: BP 167/90
[2021-04-23 17:38] VITALS: TEMP 97.8
[2021-04-23] MEDS ORDERED: Atorvastatin Calcium 10 MG TAB PO SCH (21:00)
[2021-04-24] MEDS ORDERED: Amlodipine 5 MG TAB PO SCH (09:00)
== END 2021-04-23 17:25 | disposition home health service (06) | DRG 683 ==
LOC: ERS 10:28 → CCU 13:27 → ERHOLD 15:43 → CCU 17:51 → T4-A 04-21 17:27
PROVIDERS: ADMIT Internal Medicine; ATTEND Family Medicine
PROC: 02HV33Z Insertion of Infusion Device into Superior Vena Cava, Percutaneous Approach (ICD-10-PCS; principal; 2021-04-20)
PROC: 3E033XZ Introduction of Vasopressor into Peripheral Vein, Percutaneous Approach (ICD-10-PCS; 2021-04-20)
DX: N17.0 Acute kidney failure with tubular necrosis (principal); R57.9 Shock, unspecified; Z20.822 Contact with and (suspected) exposure to COVID-19; E87.2 Acidosis; E87.1 Hypo-osmolality and hyponatremia; I48.0 Paroxysmal atrial fibrillation; J44.9 Chronic obstructive pulmonary disease, unspecified; E66.9 Obesity, unspecified; F10.20 Alcohol dependence, uncomplicated; F31.9 Bipolar disorder, unspecified; I10 Essential (primary) hypertension; E78.5 Hyperlipidemia, unspecified; E87.5 Hyperkalemia; E86.1 Hypovolemia; Z79.01 Long term (current) use of anticoagulants; Z79.899 Other long term (current) drug therapy; Z68.30 Body mass index [BMI] 30.0-30.9, adult; Z90.49 Acquired absence of other specified parts of digestive tract; Z87.891 Personal history of nicotine dependence; Z88.1 Allergy status to other antibiotic agents; Z88.0 Allergy status to penicillin; Z93.2 Ileostomy status
CPT/HCPCS: 36415; 36416; 71045; 72100; 74176; 80048; 80053; 80202; 81003; 81015; 82533; 82550; 83605; 83690; 83735; 83880; 83930; 83935; 84100; 84145; 84484; 85025; 85610; 85730; 86140; 87040; 87086; 93005; 94640; 94760; C9113; J0692; J1644; J1720; J2185; J3370; J3411; J3490; J7050; J7070; J7620; U0002

== ENCOUNTER 2021-06-03 14:28 | Outpatient (CLI) | payer MEDICARE | END 2021-06-03 14:29 | disposition home or self-care (01) | LOC: BICRAD 14:28 | PROVIDERS: ATTEND Surgery | DX: S32.011A Stable burst fracture of first lumbar vertebra, initial encounter for closed fracture (principal) | CPT/HCPCS: 72100 ==

== ENCOUNTER 2021-06-15 13:26 | Outpatient (CLI) | payer MEDICARE ==
[2021-06-15 14:39] LABS: #Eosinphils 0.1 10x3/uL (0.0-0.5); #Monocytes 0.5 10x3/uL (0.0-1.1); #Neutrophils 6.6 10x3/uL (1.5-8.4); %Basophils 0.4 % (0.0-2.0); %Eosinophils 1.5 % (0.0-6.0); %Lymphocytes 23.2 % (18.0-47.0); %Neutrophils 69.6 % (40.0-75.0); Hemoglobin 14.8 g/dL (12.0-15.5); Mean Corpuscular Hemoglobin 29.8 pg (27.0-33.0); Mean Platelet Volume 9.3 fl (7.4-10.4); Platelet Count 344 10x3/uL (150-450); RBC Distribution Width 14.2 % (11.5-14.5); Red Blood Cell (RBC) Count 4.97 10x6/uL (3.90-5.03); White Blood Cell (WBC) Count 9.4 10x3/uL (3.5-10.5)
[2021-06-15 15:14] LABS: Anion Gap 13 mmol/L (10-20); BUN (Urea Nitrogen) 10 mg/dL (9.8-20.1); Calc. Creatinine Clearance 0 mL/min (70-130); Calcium 9.6 mg/dL (7.8-10.44); Carbon Dioxide 25 mmol/L (23-31); Chloride 104 mmol/L (98-107); Glucose 103 mg/dL (80-115); Potassium 4.6 mmol/L (3.5-5.1); Sodium 137 mmol/L (136-145)
[2021-06-16 07:55] LABS: SARS-CoV-2 PCR by NAA Not Detected (NotDetected)
== END 2021-06-15 13:27 | disposition home or self-care (01) ==
LOC: LABBT 13:26
PROVIDERS: ATTEND Surgery
DX: Z01.812 Encounter for preprocedural laboratory examination (principal); K94.13 Enterostomy malfunction; Z20.822 Contact with and (suspected) exposure to COVID-19
CPT/HCPCS: 80048; 85025; U0003; U0005

== ENCOUNTER 2021-06-15 13:30 | Inpatient (IN) | payer MEDICARE ==
[2021-06-12 13:00] VITALS: BMI 29.2
[2021-06-18] MEDS ORDERED: Bupivacaine 0.25% HCL 30 ML VIAL ONE (06:35)
[2021-06-18] MEDS ORDERED: Xylocaine 1% w/ Epi 1:100K 10 ML VIAL ONE (06:35)
[2021-06-18] MEDS ORDERED: Fentanyl 250 MCG/5 ML VIAL ONE ×2 (06:45→10:44)
[2021-06-18] MEDS ORDERED: Midazolam HCl 2 mg/2 ml Vial ONE (07:09)
[2021-06-18] MEDS ORDERED: Dexamethasone 20 MG/5 ML VIAL ONE (07:10)
[2021-06-18] MEDS ORDERED: ePHEDrine 50 MG/ML VIAL ONE (07:10)
[2021-06-18] MEDS ORDERED: Lidocaine 1% PF 5 ML VIAL ONE (07:10)
[2021-06-18] MEDS ORDERED: Ondansetron PF 4 MG/2 ML Vial ONE (07:10)
[2021-06-18] MEDS ORDERED: Glycopyrrolate 0.2 MG/ML 5 ML SYRINGE ONE (07:10)
[2021-06-18] MEDS ORDERED: Bupivacaine HCl 0.5%/Epinephrine 1:200,000/PF 30 ml Vial ONE (07:10)
[2021-06-18] MEDS ORDERED: Rocuronium Bromide 10 MG/ML (10ML VIAL) ONE (07:10)
[2021-06-18] MEDS ORDERED: PROPOFOL 200 MG/20 ML VIAL ONE (07:10)
[2021-06-18] MEDS ORDERED: PHENYLEPHRINE-NS 100 MCG/ML 10 ML SYRINGE ONE (07:10)
[2021-06-18] MEDS ORDERED: SUGAMMADEX SODIUM 200 MG/2 ML VIAL ONE (08:31)
[2021-06-18] MEDS ORDERED: Levofloxacin 500 mg/D5W 100 ml Premix Bag ONE (08:39)
[2021-06-18] MEDS ORDERED: Phenylephrine 10 MG/ML VIAL ONE (09:19)
[2021-06-18] MEDS ORDERED: Ondansetron PF 4 MG/2 ML Vial IVP PRN ×2 (11:08→12:34)
[2021-06-18] MEDS ORDERED: Naloxone HCl 0.4 mg/ml Vial IV PRN (11:08)
[2021-06-18] MEDS ORDERED: diphenhydrAMINE 50 MG/ML VIAL IM PRN (11:08)
[2021-06-18] MEDS ORDERED: diphenhydrAMINE 25 MG CAP PO PRN (11:08)
[2021-06-18] MEDS ORDERED: diphenhydrAMINE 50 MG/ML VIAL IVP PRN (11:08)
[2021-06-18] MEDS ORDERED: Zolpidem Tartrate 5 MG TAB PO PRN (11:08)
[2021-06-18] MEDS ORDERED: Promethazine HCl 25 MG/ML VIAL IM PRN ×2 (11:08→12:34)
[2021-06-18] MEDS ORDERED: fentaNYL Citrate/PF 2,000 MCG in Sodium Chloride 0.9% 60 ML IV PRN (11:08)
[2021-06-18] MEDS ORDERED: Communication Order-Pharmacy FS SCH (11:15)
[2021-06-18] MEDS ORDERED: hydrALAZINE 20 MG/ML VIAL SLOW IVP PRN (12:34)
[2021-06-18] MEDS: D5 1/2 NS w/20 mEq KCL 1,000 ML IV SCH (14:10)
[2021-06-18] MEDS ORDERED: Polyethylene Glycol OPTH DROP 15 ML BOT EA EYE PRN (17:36)
[2021-06-18] MEDS: Carvedilol 6.25 MG TAB PO SCH (18:14)
[2021-06-18] MEDS: Amitriptyline HCl 100 MG TAB PO SCH (21:56)
[2021-06-18] MEDS: Famotidine/PF 20 mg/2ml Vial SLOW IVP SCH (21:57)
[2021-06-18] MEDS: Famotidine 20 MG TAB PO SCH (21:57)
[2021-06-18] MEDS: lamoTRIgine 25 MG TAB PO SCH (22:01)
[2021-06-19] MEDS: D5 1/2 NS w/20 mEq KCL 1,000 ML IV SCH (03:12)
[2021-06-19 05:58] LABS: #Eosinphils 0.2 thou/uL (0.0-0.7); #Lymphocytes 1.5 thou/uL (1.20-3.40); #Monocytes 0.7 thou/uL (0.11-0.59); #Neutrophils 10.8 thou/uL (1.40-6.50); %Basophils 0.2 % (0.0-1.0); %Eosinophils 1.2 % (0.0-10.0); %Lymphocytes 11.3 % (21.0-51.0); %Monocytes 5.4 % (0.0-10.0); %Neutrophils 81.9 % (42.0-75.0); Hemoglobin 12.7 g/dL (12.0-16.0); Mean Corpuscular HGB CONC 30.5 g/dL (32.0-36.0); Mean Corpuscular Hemoglobin 30.5 pg (27.0-31.0); Mean Platelet Volume 6.8 fL (7.4-10.4); Platelet Count 256 thou/uL (130-400); RBC Distribution Width 12.8 % (11.5-14.5); Red Blood Cell (RBC) Count 4.17 mill/uL (4.20-5.40); White Blood Cell (WBC) Count 13.1 thou/uL (4.8-10.8)
[2021-06-19 06:14] LABS: Anion Gap 10 mmol/L (10-20); BUN (Urea Nitrogen) 6 mg/dL (9.8-20.1); Calc. Creatinine Clearance 88 mL/min (70-130); Calcium 8.9 mg/dL (7.8-10.44); Carbon Dioxide 22 mmol/L (23-31); Chloride 109 mmol/L (98-107); Glucose 115 mg/dL (80-115); Potassium 4.3 mmol/L (3.5-5.1); Sodium 137 mmol/L (136-145)
[2021-06-19] MEDS: Ketorolac Tromethamine 30 MG/ML VIAL IVP PRN ×2 (06:51→20:13)
[2021-06-19] MEDS: Famotidine 20 MG TAB PO SCH ×2 (08:09→20:14)
[2021-06-19] MEDS: Enoxaparin Sodium 40 MG/0.4 ML SYRINGE SC SCH (08:09)
[2021-06-19] MEDS: Famotidine/PF 20 mg/2ml Vial SLOW IVP SCH ×2 (08:14→20:22)
[2021-06-19] MEDS: Carvedilol 6.25 MG TAB PO SCH ×2 (08:17→18:03)
[2021-06-19] MEDS ORDERED: Fentanyl 100 MCG/2 ML VIAL SLOW IVP PRN (10:18)
[2021-06-19] MEDS ORDERED: D5 1/2 NS w/20 mEq KCL 1,000 ML IV SCH (14:23)
[2021-06-19] MEDS: HYDROcodone/Acetaminophen 10/325 mg Tablet PO PRN (15:14)
[2021-06-19] MEDS: NIFEdipine XL 30 MG TAB PO SCH (18:02)
[2021-06-19] MEDS: Amitriptyline HCl 100 MG TAB PO SCH (20:14)
[2021-06-19] MEDS: lamoTRIgine 25 MG TAB PO SCH (20:20)
[2021-06-20] MEDS: Carvedilol 6.25 MG TAB PO SCH (08:14)
[2021-06-20] MEDS: Famotidine 20 MG TAB PO SCH (08:14)
[2021-06-20] MEDS: Enoxaparin Sodium 40 MG/0.4 ML SYRINGE SC SCH (08:14)
[2021-06-20] MEDS: Ketorolac Tromethamine 30 MG/ML VIAL IVP PRN (08:15)
[2021-06-20] MEDS: NIFEdipine XL 30 MG TAB PO SCH (08:15)
[2021-06-20] MEDS: HYDROcodone/Acetaminophen 10/325 mg Tablet PO PRN (08:16)
[2021-06-20 10:18] VITALS: BP 95/57
[2021-06-20 14:22] VITALS: TEMP 98.4
== END 2021-06-20 16:46 | disposition home or self-care (01) | DRG 331 ==
LOC: SURG A 06-18 05:47
PROVIDERS: ADMIT Surgery; ATTEND Surgery
PROC: 0DBB0ZZ Excision of Ileum, Open Approach (ICD-10-PCS; principal; 2021-06-18)
DX: Z43.2 Encounter for attention to ileostomy (principal); Z20.822 Contact with and (suspected) exposure to COVID-19; F31.9 Bipolar disorder, unspecified; J44.9 Chronic obstructive pulmonary disease, unspecified; I48.0 Paroxysmal atrial fibrillation; Z88.0 Allergy status to penicillin; Z88.8 Allergy status to other drugs, medicaments and biological substances
CPT/HCPCS: 36415; 80048; 85025; 93005; 93010; J1100; J1650; J1885; J1956; J2250; J2370; J2405; J2704; J3010; J3480; J3490; S0020

== ENCOUNTER 2021-06-26 07:58 | Outpatient (CLI) | payer MEDICARE | END 2021-06-26 07:59 | disposition home or self-care (01) | LOC: BICRAD 07:58 | PROVIDERS: ATTEND Surgery | DX: R10.9 Unspecified abdominal pain (principal) | CPT/HCPCS: 74019 ==

== ENCOUNTER 2021-10-01 11:42 | Outpatient (CLI) | payer MEDICARE | END 2021-10-01 11:43 | disposition home or self-care (01) | LOC: RAD 11:42 | PROVIDERS: ATTEND Surgery | DX: S32.011A Stable burst fracture of first lumbar vertebra, initial encounter for closed fracture (principal); M54.50 Low back pain, unspecified | CPT/HCPCS: 72100 ==

== ENCOUNTER 2021-11-23 12:38 | Outpatient (CLI) | payer MEDICARE | END 2021-11-23 12:39 | disposition home or self-care (01) | LOC: LABBT 12:38 | PROVIDERS: ATTEND Surgery | DX: Z20.822 Contact with and (suspected) exposure to COVID-19 (principal) | CPT/HCPCS: 87811 ==

== ENCOUNTER 2021-11-27 09:54 | Day surgery (SDC) | payer MEDICARE ==
[2021-11-26 13:12] VITALS: BMI 27.4
[2021-11-27] MEDS ORDERED: fentaNYL Citrate/PF 100 MCG/2 ML SYRINGE ONE (11:44)
[2021-11-27] MEDS ORDERED: Midazolam HCl 2 mg/2 ml Vial ONE (11:44)
[2021-11-27] MEDS ORDERED: Lidocaine 1% PF 5 ML VIAL ONE (12:30)
[2021-11-27] MEDS ORDERED: PROPOFOL 200 MG/20 ML VIAL ONE (12:30)
[2021-11-27] MEDS ORDERED: ePHEDrine 50 MG/ML VIAL ONE (12:30)
== END 2021-11-27 14:38 | disposition home or self-care (01) ==
LOC: SDC 09:54
PROVIDERS: ATTEND Surgery
DX: M48.56XA Collapsed vertebra, not elsewhere classified, lumbar region, initial encounter for fracture (principal); N28.1 Cyst of kidney, acquired; I10 Essential (primary) hypertension; I48.0 Paroxysmal atrial fibrillation; J44.9 Chronic obstructive pulmonary disease, unspecified; E78.00 Pure hypercholesterolemia, unspecified; K21.9 Gastro-esophageal reflux disease without esophagitis; F17.210 Nicotine dependence, cigarettes, uncomplicated; Z79.01 Long term (current) use of anticoagulants; Z79.899 Other long term (current) drug therapy; Z88.0 Allergy status to penicillin; Z88.1 Allergy status to other antibiotic agents; Z88.8 Allergy status to other drugs, medicaments and biological substances; Z90.49 Acquired absence of other specified parts of digestive tract
CPT/HCPCS: 72146; 72148; J2250

== ENCOUNTER 2022-11-29 10:50 | Day surgery (SDC) | payer MEDICARE ==
[2022-10-28 10:54] VITALS: BMI 31.1
[2022-11-29] MEDS ORDERED: fentaNYL 50 mcg/mL 1 mL Vial ONE (12:37)
[2022-11-29] MEDS ORDERED: Ondansetron PF 4 MG/2 ML Vial ONE (12:45)
[2022-11-29] MEDS ORDERED: Dexamethasone 20 MG/5 ML VIAL ONE (12:45)
[2022-11-29] MEDS ORDERED: Lidocaine 1% PF 5 ML VIAL ONE (12:45)
[2022-11-29] MEDS ORDERED: Ketorolac Tromethamine 30 MG/ML VIAL ONE (12:45)
[2022-11-29] MEDS ORDERED: PROPOFOL 200 MG/20 ML VIAL ONE (12:45)
== END 2022-11-29 14:30 | disposition home or self-care (01) ==
LOC: MRI 10:50
PROVIDERS: ATTEND Family Medicine
DX: S32.009A Unspecified fracture of unspecified lumbar vertebra, initial encounter for closed fracture (principal); M47.816 Spondylosis without myelopathy or radiculopathy, lumbar region; I10 Essential (primary) hypertension; E78.5 Hyperlipidemia, unspecified; F31.9 Bipolar disorder, unspecified; I48.0 Paroxysmal atrial fibrillation; J30.2 Other seasonal allergic rhinitis; Z90.49 Acquired absence of other specified parts of digestive tract; Z90.89 Acquired absence of other organs; F17.210 Nicotine dependence, cigarettes, uncomplicated; Z88.0 Allergy status to penicillin; Z88.1 Allergy status to other antibiotic agents; Z88.8 Allergy status to other drugs, medicaments and biological substances; Z79.899 Other long term (current) drug therapy; X58.XXXA Exposure to other specified factors, initial encounter
CPT/HCPCS: 72148; J3010; J1100; J1885; J2405; J2704

== ENCOUNTER 2024-05-24 12:39 | Emergency (ER) | payer MEDICARE, SELFPAY ==
[2024-05-24] MEDS ORDERED: HYDROmorphone 0.5 MG/0.5 ML SYRINGE ONE ×2 (13:30→13:49)
[2024-05-24] MEDS ORDERED: Ondansetron PF 4 MG/2 ML Vial ONE (13:32)
[2024-05-24] MEDS ORDERED: Lidocaine 4% Patch ONE (14:02)
== END 2024-05-24 17:45 | disposition home or self-care (01) ==
LOC: ERS 12:39
DX: S30.0XXA Contusion of lower back and pelvis, initial encounter (principal); I10 Essential (primary) hypertension; F17.210 Nicotine dependence, cigarettes, uncomplicated; Z79.899 Other long term (current) drug therapy; W18.30XA Fall on same level, unspecified, initial encounter
CPT/HCPCS: 70450; 73502; 74176; J1171; J2405; 96374; 96375